=== PATIENT | male | born 1955 | race Caucasian/White ===

== ENCOUNTER 2016-11-10 17:18 | Inpatient (IN) | payer OTHER ==
[~2016-11-10] VITALS: Ht 162.6 cm; Wt 107.0 kg
[2016-11-10 18:16] LABS: PLATELET COUNT 277 x10^3mcL (130-400)
[2016-11-10 18:23] LABS: CALCIUM 8.5 mg/dL (8.5-10.1); CARBON DIOXIDE 24.6 mmol/L (21-32); CHLORIDE SERUM 101 mmol/L (98-107); CREATININE SERUM 1.1 mg/dL (0.7-1.3); GFR1 > 60 mL/min; GLUCOSE SERUM 282 mg/dL (74-106); SODIUM SERUM 135 mmol/L (136-145)
[2016-11-10 18:29] LABS: ALBUMIN 3.4 g/dL (3.4-5.0); ALKALINE PHOSPHATASE 90 U/L (46-116); ALT/SGPT 31 U/L (16-63); AST/SGOT 19 U/L (15-37); BILIRUBIN TOTAL 1.11 mg/dL (0.20-1.00)
[2016-11-10] MEDS ORDERED: FUROSEMIDE40 MG PO (19:04)
[2016-11-10] MEDS ORDERED: ROBAXIN500 MG PO (19:04)
[2016-11-10] MEDS ORDERED: ZESTRIL20 MG PO (19:04)
[2016-11-10] MEDS ORDERED: LANTUS SOLOS100 U/M1 SQ (19:05)
[2016-11-10 19:18] LABS: microscopic required? YES; urine erythrocyte 1+ (NEGATIVE)
[2016-11-10 22:05] LABS: SEGMENTED NEUTROPHILS 90 % (37-75)
[2016-11-10 22:06] LABS: BAND NEUTROPHIL 2 % (0-10); MONOCYTE 3 % (0-7); rbc morphology (normal/abnorm) NORMAL (NORMAL)
[2016-11-10 22:07] LABS: PLATELET MORPHOLOGY PLATELETS NORMAL
[2016-11-10 23:52] VITALS: BP 159/84
[2016-11-10 23:55] VITALS: Ht 162.6 cm; Wt 107.0 kg
[2016-11-11 02:00] LABS: CHOLESTEROL/HDL RATIO 3.5
[2016-11-11 02:07] LABS: T3 TOTAL 0.72 ng/mL
[2016-11-11 02:09] LABS: FREE T4 0.85 ng/dL (0.76-1.46); FREE THYROXINE INDEX 1.6 ug/dL (1.4-4.5); T4(THYROXINE) 5.2 ug/dL (4.7-13.3)
[2016-11-11 03:43] LABS: AMPHETAMINE QUAL UR POSITIVE (NEG <=1000)
[2016-11-11 05:26] VITALS: BP 144/87
[2016-11-11 07:03] LABS: CALCIUM 7.8 mg/dL (8.5-10.1); CARBON DIOXIDE 24.2 mmol/L (21-32); CHLORIDE SERUM 103 mmol/L (98-107); CREATININE SERUM 0.8 mg/dL (0.7-1.3); GFR1 > 60 mL/min; GLUCOSE SERUM 206 mg/dL (74-106); PHOSPHOROUS 2.2 mg/dL (2.5-4.9); POTASSIUM SERUM 3.7 mmol/L (3.5-5.1); SODIUM SERUM 135 mmol/L (136-145)
[2016-11-11 07:24] LABS: BASOPHIL % 0.1 % (0-2); PLATELET COUNT 211 x10^3mcL (130-400); RED CELL DISTRIBUTION WIDTH 14.1 % (11.5-14.5)
[2016-11-11 08:00] VITALS: BP 147/82
[2016-11-11 12:41] VITALS: BP 130/74
[2016-11-11 16:12] VITALS: BP 149/82
[2016-11-11 22:05] VITALS: BP 133/63
[2016-11-12 06:45] VITALS: BP 131/76
[2016-11-12 07:27] LABS: BASOPHIL % 0.4 % (0-2); CALCIUM 8.1 mg/dL (8.5-10.1); CARBON DIOXIDE 28.6 mmol/L (21-32); CHLORIDE SERUM 103 mmol/L (98-107); CREATININE SERUM 1.1 mg/dL (0.7-1.3); GFR1 > 60 mL/min; GLUCOSE SERUM 163 mg/dL (74-106); MAGNESIUM 2.1 mg/dL (1.8-2.4); PHOSPHOROUS 2.8 mg/dL (2.5-4.9); PLATELET COUNT 215 x10^3mcL (130-400); POTASSIUM SERUM 4.1 mmol/L (3.5-5.1); RED CELL DISTRIBUTION WIDTH 13.9 % (11.5-14.5); SODIUM SERUM 139 mmol/L (136-145)
[2016-11-12 08:00] VITALS: BP 116/70
[2016-11-12 09:44] VITALS: BP 123/70
[2016-11-12 14:12] VITALS: BP 134/71
[2016-11-12 17:11] VITALS: BP 124/67
[2016-11-12 21:34] VITALS: BP 127/71
[2016-11-13 05:52] VITALS: BP 119/72
[2016-11-13 10:11] VITALS: BP 127/75
[2016-11-13 14:07] VITALS: BP 130/78
[2016-11-13 17:46] VITALS: BP 129/79
[2016-11-13 22:41] VITALS: BP 119/78
[2016-11-14 07:00] VITALS: BP 139/71
[2016-11-14 07:27] LABS: BASOPHIL % 0.3 % (0-2); PLATELET COUNT 257 x10^3mcL (130-400); RED CELL DISTRIBUTION WIDTH 13.9 % (11.5-14.5)
[2016-11-14 07:44] LABS: CALCIUM 8.4 mg/dL (8.5-10.1); CARBON DIOXIDE 26.8 mmol/L (21-32); CHLORIDE SERUM 103 mmol/L (98-107); GFR1 > 60 mL/min; GLUCOSE SERUM 138 mg/dL (74-106); MAGNESIUM 2.1 mg/dL (1.8-2.4); PHOSPHOROUS 3.3 mg/dL (2.5-4.9); POTASSIUM SERUM 3.8 mmol/L (3.5-5.1); SODIUM SERUM 138 mmol/L (136-145)
[2016-11-14] MEDS ORDERED: CLEOCIN HCL300 MG PO (09:37)
[2016-11-14] MEDS ORDERED: LAC PO (09:37)
[2016-11-14] MEDS ORDERED: METFORMIN HCL1000 MG PO (09:38)
[2016-11-14] MEDS ORDERED: GLU5 PO (09:39)
[2016-11-14 10:57] VITALS: BP 141/76
[2016-11-14 11:55] VITALS: BP 141/76
== END 2016-11-14 13:16 | disposition home or self-care (01) | DRG 720 ==
LOC: ED 17:18 → DU 21:53 → MU 11-13 18:13
PROVIDERS: Emergency Medicine; Family Medicine; ADMIT Family Medicine
PROC: 0JBN0ZZ Excision of Right Lower Leg Subcutaneous Tissue and Fascia, Open Approach (ICD-10-PCS; principal; 2016-11-11)
PROC: 0JBR0ZZ Excision of Left Foot Subcutaneous Tissue and Fascia, Open Approach (ICD-10-PCS; 2016-11-11)
DX: A41.9 Sepsis, unspecified organism (principal); N17.0 Acute kidney failure with tubular necrosis; G93.41 Metabolic encephalopathy; I50.43 Acute on chronic combined systolic (congestive) and diastolic (congestive) heart failure; E72.20 Disorder of urea cycle metabolism, unspecified; R65.20 Severe sepsis without septic shock; M19.90 Unspecified osteoarthritis, unspecified site; E11.65 Type 2 diabetes mellitus with hyperglycemia; F15.93 Other stimulant use, unspecified with withdrawal; E11.622 Type 2 diabetes mellitus with other skin ulcer; L97.819 Non-pressure chronic ulcer of other part of right lower leg with unspecified severity; I87.2 Venous insufficiency (chronic) (peripheral); L03.116 Cellulitis of left lower limb; E11.628 Type 2 diabetes mellitus with other skin complications; E11.51 Type 2 diabetes mellitus with diabetic peripheral angiopathy without gangrene; E11.40 Type 2 diabetes mellitus with diabetic neuropathy, unspecified; I11.0 Hypertensive heart disease with heart failure; Z68.41 Body mass index [BMI] 40.0-44.9, adult; I35.0 Nonrheumatic aortic (valve) stenosis; Z89.422 Acquired absence of other left toe(s); E66.01 Morbid (severe) obesity due to excess calories; Z79.4 Long term (current) use of insulin; Z79.899 Other long term (current) drug therapy; I42.9 Cardiomyopathy, unspecified
CPT/HCPCS: 80307; 82962; 83880; 84439; 97110-GP; 97116-GP; 97530-GP; G0480; J1644; J2543; J3490; J7030; Q0092

== ENCOUNTER 2017-12-12 02:30 | Emergency (ER) | payer OTHER ==
[~2017-12-12] VITALS: Ht 162.6 cm; Wt 103.4 kg
[~2017-12-12 02:30] MED LIST: CLEOCIN HCL300 MG PO; FUROSEMIDE40 MG PO; GLU5 PO; LAC PO; LANTUS SOLOS100 U/M1 SQ; METFORMIN HCL1000 MG PO; ROBAXIN500 MG PO; ZESTRIL20 MG PO
[2017-12-12 02:40] VITALS: Ht 162.6 cm; Wt 103.4 kg
[2017-12-12 03:49] LABS: BASOPHIL % 0.3 % (0-2); PLATELET COUNT 311 x10^3mcL (130-400); RED CELL DISTRIBUTION WIDTH 14.5 % (11.5-14.5)
[2017-12-12 04:04] LABS: CALCIUM 8.7 mg/dL (8.5-10.1); CARBON DIOXIDE 30.2 mmol/L (21-32); CHLORIDE SERUM 104 mmol/L (98-107); GFR1 > 60 mL/min; GLUCOSE SERUM 149 mg/dL (74-106); POTASSIUM SERUM 4.3 mmol/L (3.5-5.1); SODIUM SERUM 140 mmol/L (136-145)
[2017-12-12 04:10] LABS: ALBUMIN 3.5 g/dL (3.4-5.0); ALKALINE PHOSPHATASE 101 U/L (46-116); ALT/SGPT 27 U/L (16-63); AST/SGOT 21 U/L (15-37); BILIRUBIN TOTAL 0.5 mg/dL (0.20-1.00); TOTAL PROTEIN, SERUM 7.4 g/dL (6.4-8.2)
[2017-12-12 05:52] VITALS: BP 154/64
== END 2017-12-12 05:05 | disposition home or self-care (01) ==
LOC: ED 02:30
PROVIDERS: Emergency Medicine
DX: S62.521A Displaced fracture of distal phalanx of right thumb, initial encounter for closed fracture (principal); L03.116 Cellulitis of left lower limb; I10 Essential (primary) hypertension; E11.9 Type 2 diabetes mellitus without complications; X58.XXXA Exposure to other specified factors, initial encounter; Y93.89 Activity, other specified; Y92.89 Other specified places as the place of occurrence of the external cause; Y99.8 Other external cause status
CPT/HCPCS: 83880; A4570; J1885; J2543; Q0092

== ENCOUNTER 2018-01-23 08:28 | Inpatient (IN) | payer OTHER ==
[~2018-01-23] VITALS: Ht 162.6 cm; Wt 99.0 kg
[2018-01-23] MEDS ORDERED: POTASSIUM CHLO10 MEQ (08:47)
[2018-01-23] MEDS ORDERED: GOOD SENSE OMEP20 MG PO (08:47)
[2018-01-23 09:15] LABS: BASOPHIL % 0.2 % (0-2); PLATELET COUNT 265 x10^3mcL (130-400)
[2018-01-23 09:27] LABS: RED CELL DISTRIBUTION WIDTH 14.6 % (11.5-14.5)
[2018-01-23 10:10] LABS: CALCIUM 8.6 mg/dL (8.5-10.1); CARBON DIOXIDE 26.4 mmol/L (21-32); CHLORIDE SERUM 103 mmol/L (98-107); GFR1 > 60 mL/min; GLUCOSE SERUM 172 mg/dL (74-106); POTASSIUM SERUM 3.8 mmol/L (3.5-5.1); SODIUM SERUM 138 mmol/L (136-145)
[2018-01-23 12:06] VITALS: BP 155/95
[2018-01-23 12:24] VITALS: Ht 162.6 cm; Wt 99.0 kg
[2018-01-23 16:31] VITALS: BP 142/80
[2018-01-23 20:46] VITALS: BP 146/84
[2018-01-24 05:43] VITALS: BP 103/67
[2018-01-24 06:30] LABS: BASOPHIL % 0.4 % (0-2); PLATELET COUNT 263 x10^3mcL (130-400); RED CELL DISTRIBUTION WIDTH 14.4 % (11.5-14.5)
[2018-01-24 06:47] LABS: CALCIUM 8.3 mg/dL (8.5-10.1); CHLORIDE SERUM 101 mmol/L (98-107); CREATININE SERUM 0.9 mg/dL (0.7-1.3); GFR1 > 60 mL/min; GLUCOSE SERUM 77 mg/dL (74-106); SODIUM SERUM 137 mmol/L (136-145)
[2018-01-24 08:50] VITALS: BP 139/79
[2018-01-24 16:36] VITALS: BP 117/64
[2018-01-24 20:41] VITALS: BP 104/59
[2018-01-25 05:47] VITALS: BP 135/77
[2018-01-25 08:41] VITALS: BP 109/68
== END 2018-01-25 16:10 | disposition home health service (06) | DRG 383 ==
LOC: ED 08:28 → MU 10:56
PROVIDERS: Emergency Medicine; Internal Medicine Pulmonary Disease
DX: L03.115 Cellulitis of right lower limb (principal); E11.621 Type 2 diabetes mellitus with foot ulcer; L97.529 Non-pressure chronic ulcer of other part of left foot with unspecified severity; L97.519 Non-pressure chronic ulcer of other part of right foot with unspecified severity; I87.2 Venous insufficiency (chronic) (peripheral); L03.116 Cellulitis of left lower limb; I10 Essential (primary) hypertension
CPT/HCPCS: J0295; J1885; J1940; J3370; J3490; J7030

== ENCOUNTER 2018-04-02 01:32 | Inpatient (IN) | payer OTHER ==
[~2018-04-02] VITALS: Ht 162.6 cm; Wt 98.6 kg
[~2018-04-02 01:32] MED LIST changes: +GOOD SENSE OMEP20 MG PO; +LANTI SQ; +METFORMIN HYD1000 M2 PO; +POTASSIUM CHLO10 MEQ; +POTASSIUM99 M1 PO; +PRILOSEC OTC20 M1 PO
[2018-04-02 02:22] LABS: BASOPHIL % 0.4 % (0-2); PLATELET COUNT 392 x10^3mcL (130-400)
[2018-04-02 02:36] LABS: CALCIUM 8.5 mg/dL (8.5-10.1); CARBON DIOXIDE 24.4 mmol/L (21-32); CHLORIDE SERUM 103 mmol/L (98-107); CREATININE SERUM 1.2 mg/dL (0.7-1.3); GFR1 > 60 mL/min; GLUCOSE SERUM 237 mg/dL (74-106); POTASSIUM SERUM 3.8 mmol/L (3.5-5.1); SODIUM SERUM 138 mmol/L (136-145)
[2018-04-02 02:47] LABS: ALKALINE PHOSPHATASE 103 U/L (46-116); ALT/SGPT 5 U/L (16-63); AST/SGOT 17 U/L (15-37); BILIRUBIN TOTAL 0.31 mg/dL (0.20-1.00); TOTAL PROTEIN, SERUM 7.7 g/dL (6.4-8.2)
[2018-04-02 02:48] LABS: ALBUMIN 2.9 g/dL (3.4-5.0)
[2018-04-02] MEDS ORDERED: LANTUS SOLOS100 U/M1 (03:47)
[2018-04-02] MEDS ORDERED: METFORMIN HYDR500 M1 (03:47)
[2018-04-02] MEDS ORDERED: LISINOPRIL2.5 MG (03:47)
[2018-04-02 04:19] VITALS: BP 126/64
[2018-04-02 04:26] LABS: CHOLESTEROL/HDL RATIO 5.3
[2018-04-02 04:44] VITALS: Ht 162.6 cm; Wt 98.6 kg
[2018-04-02 09:46] VITALS: BP 141/90
[2018-04-02 12:21] VITALS: BP 139/82
[2018-04-02 14:58] VITALS: BP 139/82
[2018-04-02 15:00] VITALS: BP 147/84
== END 2018-04-02 15:10 | disposition short-term general hospital (02) | DRG 45 ==
LOC: ED 01:32 → DU 03:23
PROVIDERS: Emergency Medicine; Internal Medicine
DX: I63.9 Cerebral infarction, unspecified (principal); G93.40 Encephalopathy, unspecified; E11.622 Type 2 diabetes mellitus with other skin ulcer; G81.91 Hemiplegia, unspecified affecting right dominant side; I10 Essential (primary) hypertension; L98.499 Non-pressure chronic ulcer of skin of other sites with unspecified severity; F15.10 Other stimulant abuse, uncomplicated; R29.700 NIHSS score 0; E66.9 Obesity, unspecified; Z89.429 Acquired absence of other toe(s), unspecified side; Z79.899 Other long term (current) drug therapy; Z79.82 Long term (current) use of aspirin; Z79.84 Long term (current) use of oral hypoglycemic drugs; Z68.37 Body mass index [BMI] 37.0-37.9, adult
CPT/HCPCS: 82962; 97110-GP; 97530-GP; A9577; J1815; Q0092

== ENCOUNTER 2019-03-02 21:21 | Emergency (ER) | payer OTHER ==
[~2019-03-02] VITALS: Ht 162.6 cm; Wt 102.1 kg
[~2019-03-02 21:21] MED LIST changes: +LANTUS SOLOS100 U/M1; +LISINOPRIL2.5 MG; +METFORMIN HYDR500 M1
[2019-03-02 21:51] VITALS: Ht 162.6 cm; Wt 102.1 kg
[2019-03-02 22:46] LABS: BASOPHIL % 0.3 % (0-2); PLATELET COUNT 254 x10^3mcL (130-400); RED CELL DISTRIBUTION WIDTH 13.8 % (11.5-14.5)
[2019-03-02 22:50] LABS: CARBON DIOXIDE 26.3 mmol/L (21-32); CHLORIDE SERUM 101 mmol/L (98-107); GFR1 > 60 mL/min; GLUCOSE SERUM 301 mg/dL (74-106); POTASSIUM SERUM 4.3 mmol/L (3.5-5.1); SODIUM SERUM 135 mmol/L (136-145)
[2019-03-02 22:55] LABS: ALKALINE PHOSPHATASE 96 U/L (46-116); ALT/SGPT 47 U/L (16-63); AST/SGOT 21 U/L (15-37); BILIRUBIN TOTAL 0.7 mg/dL (0.20-1.00); TOTAL PROTEIN, SERUM 7.1 g/dL (6.4-8.2)
[2019-03-02 22:57] LABS: ALBUMIN 3.1 g/dL (3.4-5.0)
[2019-03-03 02:34] VITALS: BP 113/68
== END 2019-03-03 02:34 | disposition home or self-care (01) ==
LOC: ED 21:21
PROVIDERS: Emergency Medicine
DX: R53.1 Weakness (principal); R60.9 Edema, unspecified; E11.9 Type 2 diabetes mellitus without complications; I10 Essential (primary) hypertension; Z98.890 Other specified postprocedural states
CPT/HCPCS: 36415; 83880; Q0092

== ENCOUNTER 2019-04-28 11:11 | Emergency (ER) | payer OTHER ==
[~2019-04-28] VITALS: Ht 172.7 cm; Wt 99.8 kg
[2019-04-28 11:16] VITALS: BP 115/76; Ht 172.7 cm; Wt 99.8 kg
== END 2019-04-28 11:55 | disposition home or self-care (01) ==
LOC: ED 11:11
DX: Z02.89 Encounter for other administrative examinations (principal); I10 Essential (primary) hypertension; E11.9 Type 2 diabetes mellitus without complications
CPT/HCPCS: 82962

== ENCOUNTER 2019-05-19 16:44 | Inpatient (IN) | payer OTHER ==
[~2019-05-19] VITALS: Ht 162.6 cm; Wt 96.7 kg
[2019-05-19 17:19] VITALS: Ht 162.6 cm; Wt 96.7 kg
[2019-05-19 18:05] LABS: BASOPHIL % 0.4 % (0-2); PLATELET COUNT 351 x10^3mcL (130-400); RED CELL DISTRIBUTION WIDTH 14.5 % (11.5-14.5)
[2019-05-19 18:14] LABS: CALCIUM 8.3 mg/dL (8.5-10.1); CARBON DIOXIDE 28.1 mmol/L (21-32); CHLORIDE SERUM 103 mmol/L (98-107); CREATININE SERUM 1.1 mg/dL (0.7-1.3); GFR1 > 60 mL/min; GLUCOSE SERUM 231 mg/dL (74-106); POTASSIUM SERUM 4.8 mmol/L (3.5-5.1); SODIUM SERUM 137 mmol/L (136-145)
[2019-05-19 18:19] LABS: ALBUMIN 2.8 g/dL (3.4-5.0); ALKALINE PHOSPHATASE 104 U/L (46-116); ALT/SGPT 17 U/L (16-63); AST/SGOT 11 U/L (15-37); BILIRUBIN TOTAL 0.34 mg/dL (0.20-1.00); C REACTIVE PROTEIN 1.8 mg/dL (<=0.9); TOTAL PROTEIN, SERUM 7.7 g/dL (6.4-8.2)
[2019-05-19 18:46] LABS: ERYTHROCYTE SED RATE 57 mm/hr (0-20)
[2019-05-19] MEDS ORDERED: LISINOPRIL40 MG PO (19:45)
[2019-05-19 21:53] VITALS: BP 135/85
[2019-05-20 04:12] VITALS: BP 119/67
[2019-05-20 06:40] LABS: BASOPHIL % 0.4 % (0-2); PLATELET COUNT 300 x10^3mcL (130-400); RED CELL DISTRIBUTION WIDTH 14.5 % (11.5-14.5)
[2019-05-20 06:56] LABS: CALCIUM 7.9 mg/dL (8.5-10.1); CARBON DIOXIDE 26.2 mmol/L (21-32); CHLORIDE SERUM 106 mmol/L (98-107); CREATININE SERUM 0.7 mg/dL (0.7-1.3); GFR1 > 60 mL/min; GLUCOSE SERUM 76 mg/dL (74-106); MAGNESIUM 1.9 mg/dL (1.8-2.4); POTASSIUM SERUM 4.2 mmol/L (3.5-5.1); SODIUM SERUM 140 mmol/L (136-145)
[2019-05-20 08:39] VITALS: BP 130/70
[2019-05-20 18:07] VITALS: BP 138/76
[2019-05-20 19:47] VITALS: BP 129/67
[2019-05-21 03:43] VITALS: BP 130/73
[2019-05-21 08:35] VITALS: BP 119/62
[2019-05-21 16:31] VITALS: BP 106/52
[2019-05-21 20:05] VITALS: BP 126/84
[2019-05-21 20:12] VITALS: BP 129/79
[2019-05-22 06:17] VITALS: BP 124/63
[2019-05-22 07:11] LABS: BASOPHIL % 0.3 % (0-2); PLATELET COUNT 286 x10^3mcL (130-400); RED CELL DISTRIBUTION WIDTH 14.4 % (11.5-14.5)
[2019-05-22 07:28] LABS: ALKALINE PHOSPHATASE 80 U/L (46-116); ALT/SGPT 14 U/L (16-63); AST/SGOT 16 U/L (15-37); BILIRUBIN DIRECT 0.17 mg/dL (0.0-0.2); BILIRUBIN TOTAL 0.8 mg/dL (0.20-1.00); CALCIUM 7.8 mg/dL (8.5-10.1); CARBON DIOXIDE 25.1 mmol/L (21-32); CHLORIDE SERUM 103 mmol/L (98-107); CREATININE SERUM 0.9 mg/dL (0.7-1.3); GFR1 > 60 mL/min; GLUCOSE SERUM 89 mg/dL (74-106); POTASSIUM SERUM 4.1 mmol/L (3.5-5.1); SODIUM SERUM 137 mmol/L (136-145); TOTAL PROTEIN, SERUM 7.3 g/dL (6.4-8.2)
[2019-05-22 07:33] LABS: ALBUMIN 2.5 g/dL (3.4-5.0)
[2019-05-22 09:14] VITALS: BP 130/68
[2019-05-22 17:00] VITALS: BP 138/82
[2019-05-22 20:42] VITALS: BP 124/63
[2019-05-23 05:13] VITALS: BP 153/73
[2019-05-23 06:55] LABS: BASOPHIL % 0.6 % (0-2); PLATELET COUNT 277 x10^3mcL (130-400); RED CELL DISTRIBUTION WIDTH 14.5 % (11.5-14.5)
[2019-05-23 07:31] LABS: ALKALINE PHOSPHATASE 75 U/L (46-116); ALT/SGPT 14 U/L (16-63); AST/SGOT 11 U/L (15-37); BILIRUBIN TOTAL 0.52 mg/dL (0.20-1.00); CALCIUM 7.8 mg/dL (8.5-10.1); CARBON DIOXIDE 26.2 mmol/L (21-32); CHLORIDE SERUM 103 mmol/L (98-107); CREATININE SERUM 0.8 mg/dL (0.7-1.3); GFR1 > 60 mL/min; GLUCOSE SERUM 168 mg/dL (74-106); MAGNESIUM 2.1 mg/dL (1.8-2.4); SODIUM SERUM 138 mmol/L (136-145)
[2019-05-23 07:38] LABS: ALBUMIN 2.4 g/dL (3.4-5.0)
[2019-05-23 07:54] VITALS: BP 118/62
[2019-05-23] MEDS ORDERED: VANCOMYCIN1 GM/2502 IV (10:59)
[2019-05-23 12:56] VITALS: BP 118/62
[2019-05-23 13:17] VITALS: BP 129/76
[2019-05-23 17:21] VITALS: BP 139/80
[2019-05-23 19:56] VITALS: BP 133/70
[2019-05-24 04:47] VITALS: BP 144/77
[2019-05-24 06:41] LABS: BASOPHIL % 0.3 % (0-2); PLATELET COUNT 268 x10^3mcL (130-400); RED CELL DISTRIBUTION WIDTH 14.1 % (11.5-14.5)
[2019-05-24 06:53] LABS: ALKALINE PHOSPHATASE 74 U/L (46-116); ALT/SGPT 12 U/L (16-63); AST/SGOT 10 U/L (15-37); BILIRUBIN TOTAL 0.45 mg/dL (0.20-1.00); CALCIUM 7.8 mg/dL (8.5-10.1); CHLORIDE SERUM 104 mmol/L (98-107); CREATININE SERUM 0.9 mg/dL (0.7-1.3); GFR1 > 60 mL/min; GLUCOSE SERUM 167 mg/dL (74-106); MAGNESIUM 2.1 mg/dL (1.8-2.4); POTASSIUM SERUM 4.8 mmol/L (3.5-5.1); SODIUM SERUM 139 mmol/L (136-145)
[2019-05-24 06:58] LABS: ALBUMIN 2.3 g/dL (3.4-5.0)
[2019-05-24 08:09] VITALS: BP 110/65
== END 2019-05-24 15:40 | disposition home health service (06) | DRG 305 ==
LOC: ED 16:44 → MU 20:26
PROVIDERS: Emergency Medicine; Internal Medicine Pulmonary Disease; Surgery; ADMIT Internal Medicine
PROC: 0Y6M0ZF Detachment at Right Foot, Partial 5th Ray, Open Approach (ICD-10-PCS; principal; 2019-05-21 12:00)
PROC: 02HV33Z Insertion of Infusion Device into Superior Vena Cava, Percutaneous Approach (ICD-10-PCS; 2019-05-23)
DX: E11.69 Type 2 diabetes mellitus with other specified complication (principal); M86.8X7 Other osteomyelitis, ankle and foot; E11.52 Type 2 diabetes mellitus with diabetic peripheral angiopathy with gangrene; E11.42 Type 2 diabetes mellitus with diabetic polyneuropathy; E11.621 Type 2 diabetes mellitus with foot ulcer; L97.418 Non-pressure chronic ulcer of right heel and midfoot with other specified severity; I10 Essential (primary) hypertension; L03.115 Cellulitis of right lower limb; I87.8 Other specified disorders of veins; Z79.4 Long term (current) use of insulin; Z23 Encounter for immunization; Z79.899 Other long term (current) drug therapy
CPT/HCPCS: 82962; 90658; 97116-GP; 97530-GP; C1751; G0378; J1170; J1815; J2250; J2270; J2405; J2543; J2704; J3010; J3370; J3490; J7030; J7042; J7050; Q0092

== ENCOUNTER 2019-08-20 11:18 | Observation (INO) | payer OTHER ==
[~2019-08-20] VITALS: Ht 162.6 cm; Wt 99.8 kg
[~2019-08-20 11:18] MED LIST changes: +LISINOPRIL40 MG PO; +VANCOMYCIN1 GM/2502 IV
[2019-08-20 11:58] LABS: BASOPHIL % 0.5 % (0-2); PLATELET COUNT 254 x10^3mcL (130-400)
[2019-08-20 12:03] LABS: RED CELL DISTRIBUTION WIDTH 14.9 % (11.5-14.5)
[2019-08-20 12:11] LABS: CALCIUM 8.8 mg/dL (8.5-10.1); CARBON DIOXIDE 26.6 mmol/L (21-32); CHLORIDE SERUM 101 mmol/L (98-107); CREATININE SERUM 1.1 mg/dL (0.7-1.3); GFR1 > 60 mL/min; GLUCOSE SERUM 438 mg/dL (74-106); POTASSIUM SERUM 4.4 mmol/L (3.5-5.1); SODIUM SERUM 135 mmol/L (136-145)
[2019-08-20 12:17] LABS: ALBUMIN 3.5 g/dL (3.4-5.0); ALKALINE PHOSPHATASE 140 U/L (46-116); ALT/SGPT 40 U/L (16-63); AST/SGOT 25 U/L (15-37); BILIRUBIN TOTAL 0.4 mg/dL (0.20-1.00); C REACTIVE PROTEIN 1.5 mg/dL (<=0.9)
[2019-08-20 12:20] LABS: TOTAL PROTEIN, SERUM 8.3 g/dL (6.4-8.2)
[2019-08-20 12:21] LABS: FREE T4 0.9 ng/dL (0.76-1.46); FREE THYROXINE INDEX 1.6 ug/dL (1.4-4.5); T4(THYROXINE) 5.2 ug/dL (4.7-13.3)
[2019-08-20 12:22] LABS: CK-MB 11.6 ng/mL (0-3.6)
[2019-08-20 12:24] LABS: T3 TOTAL 0.96 ng/mL
[2019-08-20 12:58] LABS: ERYTHROCYTE SED RATE 26 mm/hr (0-20)
[2019-08-20 14:06] LABS: UA SPECIFIC GRAVITY 1.015 (1.005-1.035); microscopic required? YES; urine erythrocyte 2+ (NEGATIVE)
[2019-08-20 18:32] VITALS: BP 137/70
== END 2019-08-20 20:35 | disposition left against medical advice (07) ==
LOC: ED 11:18 → MU 16:38
PROVIDERS: Specialist; ADMIT Hospitalist
DX: E11.65 Type 2 diabetes mellitus with hyperglycemia (principal); N39.0 Urinary tract infection, site not specified; D72.829 Elevated white blood cell count, unspecified; R53.1 Weakness; R42 Dizziness and giddiness; I10 Essential (primary) hypertension; E11.42 Type 2 diabetes mellitus with diabetic polyneuropathy; E11.51 Type 2 diabetes mellitus with diabetic peripheral angiopathy without gangrene; E78.5 Hyperlipidemia, unspecified; E66.9 Obesity, unspecified; R53.81 Other malaise
CPT/HCPCS: 36600; 82962; 84439; 87804; G0378; J0696; J1815; J3480; J7030; Q0092

== ENCOUNTER 2019-09-02 17:48 | Inpatient (IN) | payer OTHER ==
[~2019-09-02] VITALS: Ht 172.7 cm; Wt 96.6 kg
[~2019-09-02 17:48] MED LIST changes: -LISINOPRIL2.5 MG
[2019-09-02 18:02] VITALS: Ht 172.7 cm; Wt 96.6 kg
--- NOTE | 2019-09-02 18:10 | NUR ---
PT BIB SELF C/C HIGH BLOOD SUGAR STS LAST CHECKED HIS SUGAR WAS YESTURDAY STS READ 420 PLACED ON MONITOR AWAITING FOR DR EMANUEL QUINN
--- NOTE | 2019-09-02 18:14 | NUR ---
DR MALIN AT BEDSIDE TO [place]
[2019-09-02 18:21] LABS: BASOPHIL % 0.3 % (0-2); PLATELET COUNT 270 x10^3mcL (130-400); RED CELL DISTRIBUTION WIDTH 14.7 % (11.5-14.5)
--- NOTE | 2019-09-02 18:32 | NUR ---
PLEASE ENTER FULL NAMES OF HYDRATE THICKENER OPERATOR/RN Patient data collected by (HYDRATE THICKENER OPERATOR):CELINE NOGUERA Assessment reviewed and completed by (RN): BRADFORD FR[place]
[2019-09-02 18:45] LABS: ALBUMIN 3.4 g/dL (3.4-5.0); BILIRUBIN TOTAL 0.4 mg/dL (0.20-1.00); CALCIUM 8.4 mg/dL (8.5-10.1); CARBON DIOXIDE 25.6 mmol/L (21-32); CREATININE SERUM 1.3 mg/dL (0.7-1.3); POTASSIUM SERUM 4.9 mmol/L (3.5-5.1)
[2019-09-02 19:00] LABS: microscopic required? YES; urine erythrocyte 1+ (NEGATIVE)
--- NOTE | 2019-09-02 21:20 | NUR ---
BLOOD SUGAR 391 MG/DL. INSULIN COVERAGE GIVEN
--- NOTE | 2019-09-02 22:26 | NUR ---
REPORT WAS GIVEN TO
--- NOTE | 2019-09-02 23:15 | NUR ---
PATIENT TRANSPORTED TO THE ROOM.
--- NOTE | 2019-09-02 23:18 | NUR ---
RECEIVED PT VIA GURNEY FROM E/D, ACCOMPANIED BY TRANSPORTER. PT A/A/O X 4, CALM, COOPERATIVE; PT ADMITS TO USING METH. DENIES CHEST PAIN OR DISCOMFORT AT THIS TIME. SCD BY BEDSIDE. NO ACUTE RESPIRATORY DISTRESS NOTED. INCONTINENT OF BLADDER, UA +BACTERIA, YEAST, WBC, BLOOD; DENIES DYSURIA. GENERALIZED WEAKNESS, AMBULATROY W/ CANE @ BASELINE (@ BEDSIDE), BEDBOUND @ THIS TIME, C/O CONSTANT SHARP PAIN TO LLE 7/10, EXACERBATED BY MOVEMENT, RELIEVED BY PAIN MEDICATIONS; RECENT FALL, FALL RISK PROTOCOL IN PLACE. R LATERAL FOOT SX WOUND, CDI. IV SITE LAC 20G, CDI. ORIENTED PT TO ROOM, BED CONTROLS, CALL LIGHT SYSTEM. SIDE RAILS UP X 2, BED IN LOW POSITION. WILL ENDORSE TO EDUARDO STAUFFER.
[2019-09-03 00:53] VITALS: BP 123/57
[2019-09-03 05:26] VITALS: BP 110/50; BP 135/72
[2019-09-03 05:51] LABS: BASOPHIL % 0.4 % (0-2); PLATELET COUNT 247 x10^3mcL (130-400); RED CELL DISTRIBUTION WIDTH 14.6 % (11.5-14.5)
[2019-09-03 06:32] LABS: BILIRUBIN TOTAL 0.3 mg/dL (0.20-1.00); CHLORIDE SERUM 109 mmol/L (98-107); CREATININE SERUM 0.9 mg/dL (0.7-1.3); GFR1 > 60 mL/min; MAGNESIUM 2.2 mg/dL (1.8-2.4); SODIUM SERUM 141 mmol/L (136-145)
[2019-09-03 06:53] LABS: ALKALINE PHOSPHATASE 98 U/L (46-116); ALT/SGPT 37 U/L (16-63); AST/SGOT 22 U/L (15-37); CALCIUM 7.9 mg/dL (8.5-10.1); GLUCOSE SERUM 61 mg/dL (74-106); POTASSIUM SERUM 3.9 mmol/L (3.5-5.1)
[2019-09-03 06:58] LABS: ALBUMIN 2.8 g/dL (3.4-5.0)
--- NOTE | 2019-09-03 07:21 | NUR ---
PT RESTED AT LONG INTERVALS THROUGHOUT SHIFT. NO SOB ON ROOM AIR. NO C/O PAIN. NO DISTRESS NOTED. IV TO LAC, LR INFUSING. 4X4 SOAKED WITH BETADINE APPLIED TO RIGHT LATERAL FOOT, COVERED WITH DRY DRESSING AND WRAPPED WITH ELAYNE. SAFETY MEASURES MAINTAINED. CALL LIGHT WITHIN REACH. ENDORSED CARE TO DAY SHIFT RN.
--- NOTE | 2019-09-03 08:00 | NUR ---
ALERT AND ORIENTED. GOOD APPETITE WITH BREAKFAST. BREATHING FREELY ON RA. DENIES ANY PAINAT THIS TIME. LR INFUSING 150 CC HOUR. 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 VSS. URINAL AT BEDSIDE. ORDER FOR P.T. CALL LIGHT WITHIN REACH.
[2019-09-03 08:24] VITALS: BP 137/84
--- NOTE | 2019-09-03 09:15 | NUR ---
DR. STEELE IN TO SEE PT. TOLD PT HE WILL BE GOING HOME TODAY. PTS BLOOD SUGARS ARE MORE UNDER CONTROL.
[2019-09-03 10:33] VITALS: BP 137/84
[2019-09-03] MEDS ORDERED: LISINOPRIL2.5 MG (10:46)
--- NOTE | 2019-09-03 12:02 | NUR ---
PT WILL BE DC'D TODAY. SPOKE WITH PTS ELVIA WHO WILL BE PICKING UP PT SOON SHE CAN FIND A RIDE. REVIEWED DC INSTRUCTIONS WITH PT. WHO ALSO SIGNED DC PAPERS.
--- NOTE | 2019-09-03 14:20 | NUR ---
DC'D TO HOME. PICKED UP BY EL[facility]. PT LEFT HIS CANE AND PACKET.
--- NOTE | 2019-09-03 15:24 | NUR ---
PHYSICAL THERAPY DAILY NOTES CO-SIGN All documentation done by the Bleach Boiler Puller for 09/03/19 has been reviewed. I agree with the documentation. Reviewed/Co-Signed by: Gina Zhang PT Documentation Done by:AVINASH CROW SPT
== END 2019-09-03 14:02 | disposition home health service (06) | DRG 420 ==
LOC: ED 17:48 → MU 20:05
PROVIDERS: Emergency Medicine; ADMIT Internal Medicine Pulmonary Disease
DX: E11.65 Type 2 diabetes mellitus with hyperglycemia (principal); I11.0 Hypertensive heart disease with heart failure; I50.9 Heart failure, unspecified; E86.0 Dehydration; N39.0 Urinary tract infection, site not specified; Z79.84 Long term (current) use of oral hypoglycemic drugs; Z91.19 Patient's noncompliance with other medical treatment and regimen
CPT/HCPCS: 82962; 97116-GP; C9113; G0378; J0696; J1644; J1815; J7030; J7120

== ENCOUNTER 2019-09-21 04:33 | Inpatient (IN) | payer OTHER ==
[~2019-09-21] VITALS: Ht 172.7 cm; Wt 90.7 kg
[~2019-09-21 04:33] MED LIST changes: +LISINOPRIL2.5 MG
[2019-09-21 04:47] VITALS: Ht 172.7 cm; Wt 90.7 kg
[2019-09-21 06:42] LABS: BASOPHIL % 0.3 % (0-2); PLATELET COUNT 267 x10^3mcL (130-400); RED CELL DISTRIBUTION WIDTH 14.7 % (11.5-14.5)
[2019-09-21 06:46] LABS: ALBUMIN 3.4 g/dL (3.4-5.0); ALKALINE PHOSPHATASE 137 U/L (46-116); ALT/SGPT 48 U/L (16-63); AST/SGOT 23 U/L (15-37); BILIRUBIN TOTAL 0.7 mg/dL (0.20-1.00); CARBON DIOXIDE 28.7 mmol/L (21-32); CHLORIDE SERUM 101 mmol/L (98-107); CHOLESTEROL 179 mg/dL (<200); CHOLESTEROL/HDL RATIO 4.3; CREATININE SERUM 1.1 mg/dL (0.7-1.3); GFR1 > 60 mL/min; GLUCOSE SERUM 315 mg/dL (74-106); HDL CHOLESTEROL 42 mg/dL (40-60); LIPASE 285 IU/L (73-393); POTASSIUM SERUM 4.7 mmol/L (3.5-5.1); SODIUM SERUM 136 mmol/L (136-145); TRIGLYCERIDES 62 mg/dL (<150)
[2019-09-21 06:53] LABS: TOTAL PROTEIN, SERUM 8.4 g/dL (6.4-8.2)
[2019-09-21 10:46] LABS: microscopic required? YES; urine erythrocyte 1+ (NEGATIVE)
[2019-09-21 11:11] LABS: AMPHETAMINE QUAL UR POSITIVE (See below)
[2019-09-21] MEDS ORDERED: ZESTRIL40 MG PO (13:57)
[2019-09-21] MEDS ORDERED: FORTAMET1000 MG (13:57)
[2019-09-21] MEDS ORDERED: OMEPRAZOLE40 M1 PO (13:57)
[2019-09-21 15:26] VITALS: BP 138/65
[2019-09-21 21:38] VITALS: BP 115/62
[2019-09-21 21:39] VITALS: BP 142/65
[2019-09-22 05:06] VITALS: BP 122/65
[2019-09-22 06:40] LABS: CARBON DIOXIDE 26.9 mmol/L (21-32); CHLORIDE SERUM 105 mmol/L (98-107); GFR1 > 60 mL/min; GLUCOSE SERUM 167 mg/dL (74-106); POTASSIUM SERUM 4.5 mmol/L (3.5-5.1); SODIUM SERUM 138 mmol/L (136-145)
[2019-09-22 08:16] VITALS: BP 143/73
[2019-09-22 12:19] VITALS: BP 124/69
[2019-09-22] MEDS ORDERED: LEVAQUIN500 M1 PO (12:48)
[2019-09-22 15:00] VITALS: BP 124/69
[2019-09-22 16:00] LABS: BASOPHIL % 0.6 % (0-2); PLATELET COUNT 238 x10^3mcL (130-400)
[2019-09-22 16:01] LABS: RED CELL DISTRIBUTION WIDTH 15.1 % (11.5-14.5)
[2019-09-22 16:54] VITALS: BP 144/80
== END 2019-09-22 20:27 | disposition home or self-care (01) | DRG 463 ==
LOC: ED 04:33 → DU 14:07
PROVIDERS: Specialist; ADMIT Hospitalist
DX: N39.0 Urinary tract infection, site not specified (principal); G93.41 Metabolic encephalopathy; E11.51 Type 2 diabetes mellitus with diabetic peripheral angiopathy without gangrene; E11.42 Type 2 diabetes mellitus with diabetic polyneuropathy; E78.5 Hyperlipidemia, unspecified; L03.115 Cellulitis of right lower limb; F15.10 Other stimulant abuse, uncomplicated; E11.65 Type 2 diabetes mellitus with hyperglycemia; I10 Essential (primary) hypertension; Z89.422 Acquired absence of other left toe(s); Z89.421 Acquired absence of other right toe(s); Z79.899 Other long term (current) drug therapy
CPT/HCPCS: 82962; G0378; G0480; J0696; J1644; J2310; J2405; J3370; J7030; J7050; J7060; Q0092